=== PATIENT | male | born 1980 | race Caucasian/White ===

== ENCOUNTER 2024-08-27 09:16 | Emergency (ER) | payer OTHER ==
[~2024-08-27] VITALS: Ht 175.3 cm; Wt 102.1 kg
[2024-08-27] MEDS ORDERED: Acetaminophen 500 MG Tab PO ONE (10:25)
[2024-08-27] MEDS ORDERED: Ibuprofen 600 MG Tab PO ONE (10:25)
[2024-08-27] MEDS ORDERED: OxyCODONE HCL 5 MG TAB PO ONE (10:25)
[2024-08-27 10:51] LABS: BASOPHILS ABSOLUTE AUTO 0.04 K/mm3 (0.00-0.23); BASOPHILS PERCENT AUTO 1 % (0-2); EOSINOPHILS ABSOLUTE AUTO 0.16 K/mm3 (0.00-0.68); EOSINOPHILS PERCENT AUTO 2 % (0-6); Hematocrit 43.5 % (37.0-53.0); Hemoglobin 15.7 g/dL (13.5-17.5); IMMATURE GRAN ABSOLUTE AUTO 0.03 K/mm3 (0.00-0.10); IMMATURE GRAN PERCENT AUTO 0 % (0-1); LYMPHOCYTES ABSOLUTE AUTO 1.58 K/mm3 (0.84-5.20); LYMPHOCYTES PERCENT AUTO 18 % (21-46); MONOCYTES ABSOLUTE AUTO 0.68 K/mm3 (0.16-1.47); MONOCYTES PERCENT AUTO 8 % (4-13); Mean Corpuscular HGB 31.8 pg (26.0-34.0); Mean Corpuscular HGB Conc 36.1 g/dL (31.5-36.5); Mean Corpuscular Volume 88 fL (80-100); Mean Platelet Volume 11.6 fL (9.1-12.4); NEUTROPHILS ABSOLUTE AUTO 6.08 K/mm3 (1.96-9.15); NEUTROPHILS PERCENT AUTO 71 % (41-73); Platelet Count 127 K/mm3 (150-400); RDW Coefficient Variation 12.3 % (11.7-14.2); RDW Standard Deviation 39.9 fL (35.1-46.3); Red Blood Cell Count 4.93 M/mm3 (4.30-5.90); White Blood Cell Count 8.57 K/mm3 (4.00-11.30)
[2024-08-27 11:36] LABS: Albumin/Globulin Ratio 1.1 (0.8-1.8); Bilirubin, Total 0.8 mg/dL (0.1-1.0); Bun/Creatinine Ratio 11.2 (12.0-20.0); C-REACTIVE PROTEIN, EXT RANGE 1.17 mg/dL (0.000-0.300); Creatinine, Blood 0.54 mg/dL (0.60-1.20); Globulin, Blood 3.7 g/dL (2.2-4.0); Potassium, Blood 3.5 mmol/L (3.5-5.5); Total Protein, Blood 7.7 g/dL (6.4-8.2)
[2024-08-27] MEDS ORDERED: Cephalexin Monohydrate 500 MG Cap PO ONE (12:35)
[2024-08-27] MEDS ORDERED: Trimethoprim/Sulfamethoxazole DS Tab PO ONE (12:35)
[2024-08-27] MEDS ORDERED: CEPH500 PO (14:11)
[2024-08-27] MEDS ORDERED: SULTRIDS PO (14:11)
== END 2024-08-27 14:00 | disposition home or self-care (01) ==
LOC: ER 09:16
PROVIDERS: Student in an Organized Health Care Education/Training Program
DX: L03.211 Cellulitis of face (principal); M25.512 Pain in left shoulder; G89.29 Other chronic pain; Z88.0 Allergy status to penicillin
CPT/HCPCS: 36415; 70490; 73030; 80053; 85025; 85651; 86140; 99284-25; A9270

== ENCOUNTER 2025-03-29 08:24 | Emergency (ER) | payer OTHER ==
[~2025-03-29] VITALS: Ht 175.3 cm; Wt 102.1 kg
[~2025-03-29 08:24] MED LIST: CEPH500 PO; SULTRIDS PO
[2025-03-29] MEDS ORDERED: Morphine Sulfate 4 MG/1 ML Injection IV ONE (09:05)
[2025-03-29 09:55] LABS: BASOPHILS ABSOLUTE AUTO 0.07 K/mm3 (0.00-0.23); BASOPHILS PERCENT AUTO 1 % (0-2); EOSINOPHILS ABSOLUTE AUTO 0.16 K/mm3 (0.00-0.68); EOSINOPHILS PERCENT AUTO 2 % (0-6); Hematocrit 42.7 % (37.0-53.0); Hemoglobin 15.3 g/dL (13.5-17.5); IMMATURE GRAN ABSOLUTE AUTO 0.03 K/mm3 (0.00-0.10); IMMATURE GRAN PERCENT AUTO 0 % (0-1); LYMPHOCYTES ABSOLUTE AUTO 1.38 K/mm3 (0.84-5.20); LYMPHOCYTES PERCENT AUTO 15 % (21-46); MONOCYTES ABSOLUTE AUTO 0.77 K/mm3 (0.16-1.47); MONOCYTES PERCENT AUTO 8 % (4-13); Mean Corpuscular HGB Conc 35.8 g/dL (31.5-36.5); Mean Corpuscular Volume 88 fL (80-100); NEUTROPHILS ABSOLUTE AUTO 7.12 K/mm3 (1.96-9.15); NEUTROPHILS PERCENT AUTO 75 % (41-73); NRBC ABSOLUTE 0.00 K/mm3 (0.00-0.02); NRBC Auto 0.0 /100 WBC (0.0-0.2); Platelet Count 129 K/mm3 (150-400); RDW Coefficient Variation 12.2 % (11.7-14.2); RDW Standard Deviation 39.3 fL (35.1-46.3)
[2025-03-29 10:18] LABS: Alanine Aminotransfer (ALT/SGP 16.0 U/L (12-78); Albumin, Blood 3.9 g/dL (3.4-5.0); Albumin/Globulin Ratio 1.0 (0.8-1.8); Anion Gap 8.0 mmol/L (3-11); Aspartate Aminotrans (AST/SGOT 7.0 U/L (12-37); Bilirubin, Total 0.8 mg/dL (0.1-1.0); Blood Urea Nitrogen 9.0 mg/dL (8-24); CO2, Blood 27.0 mmol/L (21-32); Calcium, Blood 9.2 mg/dL (8.5-10.1); Chloride, Blood 98.0 mmol/L (98-108); Creatinine, Blood 0.52 mg/dL (0.60-1.20); Globulin, Blood 3.8 g/dL (2.2-4.0); Glucose, Blood 468.0 mg/dL (70-99); Potassium, Blood 4.2 mmol/L (3.5-5.5); Sodium, Blood 129.0 mmol/L (136-145); Total Protein, Blood 7.7 g/dL (6.4-8.2)
[2025-03-29] MEDS ORDERED: CefTRIAXone Sodium 1,000 MG in NS 100 ML IV ONE (10:35)
[2025-03-29] MEDS ORDERED: HYDROmorphone HCl/Pf 1MG SYR IV ONE (10:45)
[2025-03-29] MEDS ORDERED: DOXY100 PO (11:51)
[2025-03-29] MEDS ORDERED: OXYC5 PO (11:51)
== END 2025-03-29 12:09 | disposition home or self-care (01) ==
LOC: ER 08:24
PROVIDERS: Emergency Medicine
DX: L02.215 Cutaneous abscess of perineum (principal); L03.315 Cellulitis of perineum; Z88.0 Allergy status to penicillin
CPT/HCPCS: 46050; 72193; 80053; 83605; 85025; 96365-59; 96375-59; 99283-25; A9270; J0696; J1171; J2270; Q9967

== ENCOUNTER 2025-04-18 10:05 | Emergency (ER) | payer OTHER ==
[~2025-04-18] VITALS: Ht 175.3 cm; Wt 102.1 kg
[~2025-04-18 10:05] MED LIST changes: +DOXY100 PO; +OXYC5 PO
[2025-04-18 11:05] LABS: BASOPHILS ABSOLUTE AUTO 0.07 K/mm3 (0.00-0.23); BASOPHILS PERCENT AUTO 1 % (0-2); EOSINOPHILS ABSOLUTE AUTO 0.29 K/mm3 (0.00-0.68); EOSINOPHILS PERCENT AUTO 3 % (0-6); Hematocrit 44.1 % (37.0-53.0); Hemoglobin 15.1 g/dL (13.5-17.5); IMMATURE GRAN ABSOLUTE AUTO 0.03 K/mm3 (0.00-0.10); IMMATURE GRAN PERCENT AUTO 0 % (0-1); LYMPHOCYTES ABSOLUTE AUTO 2.68 K/mm3 (0.84-5.20); LYMPHOCYTES PERCENT AUTO 29 % (21-46); MONOCYTES ABSOLUTE AUTO 0.84 K/mm3 (0.16-1.47); MONOCYTES PERCENT AUTO 9 % (4-13); Mean Corpuscular HGB Conc 34.2 g/dL (31.5-36.5); Mean Corpuscular Volume 88 fL (80-100); NEUTROPHILS ABSOLUTE AUTO 5.44 K/mm3 (1.96-9.15); NEUTROPHILS PERCENT AUTO 58 % (41-73); NRBC ABSOLUTE 0.00 K/mm3 (0.00-0.02); NRBC Auto 0.0 /100 WBC (0.0-0.2); Platelet Count 165 K/mm3 (150-400); RDW Coefficient Variation 12.1 % (11.7-14.2); RDW Standard Deviation 39.0 fL (35.1-46.3)
[2025-04-18 11:28] LABS: Alanine Aminotransfer (ALT/SGP 18.0 U/L (12-78); Albumin, Blood 3.9 g/dL (3.4-5.0); Albumin/Globulin Ratio 1.0 (0.8-1.8); Anion Gap 7.0 mmol/L (3-11); Aspartate Aminotrans (AST/SGOT 10.0 U/L (12-37); Bilirubin, Total 0.7 mg/dL (0.1-1.0); Blood Urea Nitrogen 7.0 mg/dL (8-24); CO2, Blood 27.0 mmol/L (21-32); Calcium, Blood 9.1 mg/dL (8.5-10.1); Chloride, Blood 102.0 mmol/L (98-108); Creatinine, Blood 0.44 mg/dL (0.60-1.20); Globulin, Blood 4.0 g/dL (2.2-4.0); Glucose, Blood 283.0 mg/dL (70-99); Potassium, Blood 4.0 mmol/L (3.5-5.5); Sodium, Blood 132.0 mmol/L (136-145); Total Protein, Blood 7.9 g/dL (6.4-8.2)
[2025-04-18] MEDS ORDERED: HYDROCODONE-AC1 EA10 PO (12:49)
[2025-04-18] MEDS ORDERED: Flagyl500 MG PO (12:49)
[2025-04-18] MEDS ORDERED: CEPH500 PO (12:49)
== END 2025-04-18 12:53 | disposition home or self-care (01) ==
LOC: ER 10:05
PROVIDERS: Emergency Medicine
DX: L03.221 Cellulitis of neck (principal); R73.03 Prediabetes; I10 Essential (primary) hypertension; Z86.73 Personal history of transient ischemic attack (TIA), and cerebral infarction without residual deficits; Z88.0 Allergy status to penicillin
CPT/HCPCS: 70491; 80053; 85025; 99284-25; A9270; Q9967

== ENCOUNTER 2025-05-15 11:10 | Emergency (ER) | payer OTHER ==
[~2025-05-15] VITALS: Ht 172.7 cm; Wt 93.0 kg
[~2025-05-15 11:10] MED LIST changes: +Flagyl500 MG PO; +HYDROCODONE-AC1 EA10 PO; +LISI20 PO; +METF500C PO
[2025-05-15 11:56] LABS: BASOPHILS ABSOLUTE AUTO 0.08 K/mm3 (0.00-0.23); BASOPHILS PERCENT AUTO 1 % (0-2); EOSINOPHILS ABSOLUTE AUTO 0.17 K/mm3 (0.00-0.68); EOSINOPHILS PERCENT AUTO 2 % (0-6); Hematocrit 42.5 % (37.0-53.0); Hemoglobin 14.3 g/dL (13.5-17.5); IMMATURE GRAN ABSOLUTE AUTO 0.02 K/mm3 (0.00-0.10); IMMATURE GRAN PERCENT AUTO 0 % (0-1); LYMPHOCYTES ABSOLUTE AUTO 2.09 K/mm3 (0.84-5.20); LYMPHOCYTES PERCENT AUTO 28 % (21-46); MONOCYTES ABSOLUTE AUTO 0.61 K/mm3 (0.16-1.47); MONOCYTES PERCENT AUTO 8 % (4-13); Mean Corpuscular HGB Conc 33.6 g/dL (31.5-36.5); Mean Corpuscular Volume 88 fL (80-100); NEUTROPHILS ABSOLUTE AUTO 4.61 K/mm3 (1.96-9.15); NEUTROPHILS PERCENT AUTO 61 % (41-73); NRBC ABSOLUTE 0.00 K/mm3 (0.00-0.02); NRBC Auto 0.0 /100 WBC (0.0-0.2); Platelet Count 153 K/mm3 (150-400); RDW Coefficient Variation 12.0 % (11.7-14.2); RDW Standard Deviation 39.0 fL (35.1-46.3)
[2025-05-15 12:20] LABS: Alanine Aminotransfer (ALT/SGP 16.0 U/L (12-78); Albumin, Blood 3.3 g/dL (3.4-5.0); Albumin/Globulin Ratio 0.9 (0.8-1.8); Anion Gap 5.0 mmol/L (3-11); Aspartate Aminotrans (AST/SGOT 14.0 U/L (12-37); Bilirubin, Total 0.5 mg/dL (0.1-1.0); Blood Urea Nitrogen 7.0 mg/dL (8-24); CO2, Blood 29.0 mmol/L (21-32); Calcium, Blood 8.7 mg/dL (8.5-10.1); Chloride, Blood 103.0 mmol/L (98-108); Creatinine, Blood 0.45 mg/dL (0.60-1.20); Globulin, Blood 3.7 g/dL (2.2-4.0); Glucose, Blood 268.0 mg/dL (70-99); Potassium, Blood 4.2 mmol/L (3.5-5.5); Sodium, Blood 133.0 mmol/L (136-145); Total Protein, Blood 7.0 g/dL (6.4-8.2)
[2025-05-15] MEDS ORDERED: HYDROcodone 5-APAP 325 TAB PO ONE (16:30)
== END 2025-05-15 16:41 | disposition home or self-care (01) ==
LOC: ER 11:10
PROVIDERS: Emergency Medicine
DX: R22.1 Localized swelling, mass and lump, neck (principal); E11.9 Type 2 diabetes mellitus without complications; I10 Essential (primary) hypertension; Z86.73 Personal history of transient ischemic attack (TIA), and cerebral infarction without residual deficits; Z88.0 Allergy status to penicillin; Z79.84 Long term (current) use of oral hypoglycemic drugs; Z79.899 Other long term (current) drug therapy
CPT/HCPCS: 70491; 80053; 85025; 99284-25; A9270; Q9967

== ENCOUNTER 2025-05-22 13:41 | Emergency (ER) | payer OTHER ==
[~2025-05-22] VITALS: Ht 172.7 cm; Wt 93.9 kg
[2025-05-22 15:43] LABS: BASOPHILS ABSOLUTE AUTO 0.04 K/mm3 (0.00-0.23); BASOPHILS PERCENT AUTO 0 % (0-2); EOSINOPHILS ABSOLUTE AUTO 0.16 K/mm3 (0.00-0.68); EOSINOPHILS PERCENT AUTO 2 % (0-6); Hematocrit 42.2 % (37.0-53.0); Hemoglobin 14.9 g/dL (13.5-17.5); IMMATURE GRAN ABSOLUTE AUTO 0.02 K/mm3 (0.00-0.10); IMMATURE GRAN PERCENT AUTO 0 % (0-1); LYMPHOCYTES ABSOLUTE AUTO 2.10 K/mm3 (0.84-5.20); LYMPHOCYTES PERCENT AUTO 23 % (21-46); MONOCYTES ABSOLUTE AUTO 0.78 K/mm3 (0.16-1.47); MONOCYTES PERCENT AUTO 9 % (4-13); Mean Corpuscular HGB Conc 35.3 g/dL (31.5-36.5); Mean Corpuscular Volume 86 fL (80-100); NEUTROPHILS ABSOLUTE AUTO 6.03 K/mm3 (1.96-9.15); NEUTROPHILS PERCENT AUTO 66 % (41-73); NRBC ABSOLUTE 0.00 K/mm3 (0.00-0.02); NRBC Auto 0.0 /100 WBC (0.0-0.2); Platelet Count 157 K/mm3 (150-400); RDW Coefficient Variation 12.3 % (11.7-14.2); RDW Standard Deviation 38.9 fL (35.1-46.3)
[2025-05-22 16:07] LABS: Alanine Aminotransfer (ALT/SGP 14.0 U/L (12-78); Albumin, Blood 3.6 g/dL (3.4-5.0); Albumin/Globulin Ratio 0.9 (0.8-1.8); Anion Gap 8.0 mmol/L (3-11); Aspartate Aminotrans (AST/SGOT 7.0 U/L (12-37); Bilirubin, Total 0.6 mg/dL (0.1-1.0); Blood Urea Nitrogen 7.0 mg/dL (8-24); CO2, Blood 27.0 mmol/L (21-32); Calcium, Blood 9.0 mg/dL (8.5-10.1); Chloride, Blood 100.0 mmol/L (98-108); Creatinine, Blood 0.43 mg/dL (0.60-1.20); Globulin, Blood 4.0 g/dL (2.2-4.0); Glucose, Blood 340.0 mg/dL (70-99); Potassium, Blood 4.0 mmol/L (3.5-5.5); Sodium, Blood 131.0 mmol/L (136-145); Total Protein, Blood 7.6 g/dL (6.4-8.2)
== END 2025-05-22 18:54 | disposition left against medical advice (07) ==
LOC: ER 13:41
PROVIDERS: Emergency Medicine
DX: R22.1 Localized swelling, mass and lump, neck (principal); F17.200 Nicotine dependence, unspecified, uncomplicated; Z53.21 Procedure and treatment not carried out due to patient leaving prior to being seen by health care provider; Z88.0 Allergy status to penicillin
CPT/HCPCS: 80053; 85025

== ENCOUNTER → 2025-05-24 | Outpatient (CLI) | payer OTHER | LOC: LAB SHORT 14:40 → LAB 14:40 | DX: R59.0 Localized enlarged lymph nodes (principal); D49.0 Neoplasm of unspecified behavior of digestive system | CPT/HCPCS: 88173 ==

== ENCOUNTER 2025-06-09 23:56 | Inpatient (IN) | payer OTHER ==
[~2025-06-09] VITALS: Ht 175.3 cm; Wt 88.1 kg
[2025-06-10 00:34] LABS: BASOPHILS ABSOLUTE AUTO 0.06 K/mm3 (0.00-0.23); BASOPHILS PERCENT AUTO 1 % (0-2); EOSINOPHILS ABSOLUTE AUTO 0.21 K/mm3 (0.00-0.68); EOSINOPHILS PERCENT AUTO 3 % (0-6); Hematocrit 39.8 % (37.0-53.0); Hemoglobin 13.7 g/dL (13.5-17.5); IMMATURE GRAN ABSOLUTE AUTO 0.02 K/mm3 (0.00-0.10); IMMATURE GRAN PERCENT AUTO 0 % (0-1); LYMPHOCYTES ABSOLUTE AUTO 1.56 K/mm3 (0.84-5.20); LYMPHOCYTES PERCENT AUTO 19 % (21-46); MONOCYTES ABSOLUTE AUTO 0.74 K/mm3 (0.16-1.47); MONOCYTES PERCENT AUTO 9 % (4-13); Mean Corpuscular HGB Conc 34.4 g/dL (31.5-36.5); Mean Corpuscular Volume 85 fL (80-100); NEUTROPHILS ABSOLUTE AUTO 5.67 K/mm3 (1.96-9.15); NEUTROPHILS PERCENT AUTO 69 % (41-73); NRBC ABSOLUTE 0.00 K/mm3 (0.00-0.02); NRBC Auto 0.0 /100 WBC (0.0-0.2); Platelet Count 172 K/mm3 (150-400); RDW Coefficient Variation 12.4 % (11.7-14.2); RDW Standard Deviation 38.5 fL (35.1-46.3)
[2025-06-10 00:57] LABS: Alanine Aminotransfer (ALT/SGP 19.0 U/L (12-78); Albumin, Blood 3.6 g/dL (3.4-5.0); Albumin/Globulin Ratio 1.1 (0.8-1.8); Anion Gap 10.0 mmol/L (3-11); Aspartate Aminotrans (AST/SGOT 18.0 U/L (12-37); Bilirubin, Total 0.7 mg/dL (0.1-1.0); Blood Urea Nitrogen 8.0 mg/dL (8-24); CO2, Blood 26.0 mmol/L (21-32); Calcium, Blood 9.1 mg/dL (8.5-10.1); Chloride, Blood 101.0 mmol/L (98-108); Creatinine, Blood 0.44 mg/dL (0.60-1.20); Globulin, Blood 3.4 g/dL (2.2-4.0); Glucose, Blood 257.0 mg/dL (70-99); Potassium, Blood 3.8 mmol/L (3.5-5.5); Sodium, Blood 133.0 mmol/L (136-145); Total Protein, Blood 7.0 g/dL (6.4-8.2)
[2025-06-10] MEDS ORDERED: HYDROmorphone HCl/Pf 1MG SYR IV PRN ×2 (02:30→04:35)
[2025-06-10] MEDS ORDERED: MetroNIDAZOLE 500MG/NS 100 ml 100 ML IV ONE (02:35)
[2025-06-10] MEDS ORDERED: CefTRIAXone Sodium 2,000 MG in NS 100 ML IV ONE (02:35)
[2025-06-10 03:21] LABS: Prothrombin Time Results 11.6 Sec (9.7-11.5)
[2025-06-10] MEDS ORDERED: Naloxone HCl 0.4MG / ML 1ML Vial IV PRN (04:30)
[2025-06-10] MEDS ORDERED: Ondansetron HCl 2 MG / ML 2ML Vial IV PRN (04:30)
[2025-06-10] MEDS ORDERED: FLU VACC TS2025-26(6MOS UP)/PF 45 MCG/0.5 ML SYRINGE IM SCH (04:35)
[2025-06-10] MEDS ORDERED: Enoxaparin 40 MG/0.4 ML SYR SC SCH (09:00)
[2025-06-10] MEDS ORDERED: Lactobacil 2-S.Thermo-Bifido 1 1 Cap PO SCH (09:00)
[2025-06-10] MEDS ORDERED: MetroNIDAZOLE 500MG/NS 100 ml 100 ML IV SCH (10:00)
[2025-06-10 14:24] VITALS: BP 172/98
[2025-06-10] MEDS ORDERED: AMLO5 PO (14:37)
[2025-06-10 15:00] VITALS: BP 159/87
[2025-06-10] MEDS ORDERED: HydrALAZINE HCl 20 MG / ML 1ML Vial IV PRN (15:55)
--- NOTE | 2025-06-10 17:11 | NUR ---
PT SETTLED TO BED FROM ADMIT. B/P LOWERED WITH SETTLING AND WITH PAIN MEDS. SOMEWHAT IRRITABLE AND DEFENSIVE WITH QUESTIONS ON ADMIT. STAETS DOES NOT KNOW HOW LONG HAS BEEN DIABETIC. 5 YRS, 20 YRS. STATES DOES NOT KNOW DATES OR TIMES AT ALL. FINALLY SETTLED ON ABOUT 10 YRS. DOES NOT CHECK INSULIN. STATES LIVES [place]. DISCUSSED WITH DR SANCHES. ADMITTED TO INCREASED PAIN, MEDICATED PER EMAR. PT AWARE AND AGREES TO CALL IF PAIN INCREASING AGAIN. IVF INFUSING PER EMAR. NO OTHER NEW CONCERNS NOTED. BED IN LOW POSITION, CALL LITE IN REACH, CALLS APPROP
[2025-06-10] MEDS ORDERED: Insulin Human Lispro 100 Units/ML 3ML Syringe SC SCH (17:30)
[2025-06-10] MEDS ORDERED: NS 250 ML IV PRN (17:35)
[2025-06-10 19:36] VITALS: BP 154/91
[2025-06-10] MEDS ORDERED: Insulin Glargine-Yfgn 100 Unit/mL 3 ML SYR SC SCH (21:00)
--- NOTE | 2025-06-10 23:32 | NUR ---
LAB CALLED WITH POSITIVE BLOOD CX FOR GRAM POS COCCI WITH CLUSTERS. CALLED AND SPOKE TO DR PUGA. WILL PUT IN A PHARMACY CONSULT FOR VANCOMYCIN FOR BACTEREMIA WITH A TROPH OF 15-[address] PUGA.
[2025-06-10] MEDS ORDERED: Vancomycin (Pharmacy Consult) IV SCH (23:40)
[2025-06-11 00:22] VITALS: BP 153/95
[2025-06-11 04:04] VITALS: BP 146/97
[2025-06-11] MEDS ORDERED: CefTRIAXone Sodium 2,000 MG in NS 100 ML IV SCH (06:00)
--- NOTE | 2025-06-11 07:14 | NUR ---
[place] ADMINISTRATOR SUMMARY PT A&OX4, VSS. ABLE TO COMMUNICATE NEEDS APPROPRIATELY. PT HAS BEEN ASLEEP FOR MOST OF THE SHIFT. CHEST RISE/RESPIRATIONS NOTED. REMAINS ON TELE. ST AT 119. OXYCODONE ADMIN X 1 FOR NECK PAIN W/ GOOD EFFECT. VANCOMYCIN ORDERED FOR POSITIVE BC THIS SHIFT. SEE BREAK COLLETTE LUCAS'S NOTE FOR DETAILS. LR CONTINUES TO RUN AT 75 ML PER EMAR. BED RAILS UP X 2, BED IN LOWEST POSITION, BED WHEELS LOCKED, PERSONAL BELONGINGS AND CALL LIGHT WITHIN REACH FOR SAFETY.
[2025-06-11 07:58] VITALS: BP 136/93
[2025-06-11 11:19] VITALS: BP 154/97
[2025-06-11 12:10] LABS: Lactate Dehydrogenase (Ld),Bld 502.0 U/L (100-240); Uric Acid, Blood 2.4 mg/dL (3.5-7.2)
--- NOTE | 2025-06-11 14:54 | NUR ---
CLARIFIED c DR. 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 PT HAS ALREADY HAD A RADIOLOGY GUIDED BIOPSY, [place] WOULD LIKE A LARGER PORTION OF TISSUE FOR BIOPSY THUS GENERAL SURGERY CONSULT. RN CONTACTED ANSWERING SERVICE FOR CONSULT c DR. PUENTE ON 06/11/25 @ [id number].
[2025-06-11 15:42] VITALS: BP 134/77
--- NOTE | 2025-06-11 17:22 | NUR ---
SHIFT SUMMARY NO ACUTE CHANGES, A/Ox4, ABLE TO MAKE NEEDS KNOWN AND USES CALL SYSTEM APPROPRIATELY. TREATED FOR PAIN PER EMAR. INTAKE IMPROVING WITH SNACKS PT ENJOYS - PT EDUCATED/INFORMED RE PERSONALIZING MEALS. GENERAL SURGERY CONSULTS CALLED IN BY RN TODAY FOR PORT PLACEMENT AND BIOPSY OF MASS TO RIGHT NECK. GENERAL SURGEON NOT SEEN DURING THIS SHIFT FOR CONSULT. ORDERS FROM PROVIDER TO DRAW LABS FROM PIV. TELE AND CONTINUOUS PUOLSE OX DC'D. PT CURRENTLY RESTING IN BED WITH BED IN LOWEST POSITION AND CALL LIGHT WITHIN REACH.
--- NOTE | 2025-06-11 18:47 | NUR ---
PT SHOWERED. AFTER SHOWER LEFT AC PIV BLOWN, RIGHT AC PIV LEAKING. RN REMOVED BOTH PIV. PT REQUESTED RN WAIT TO PLACE NEW PIV - WILL REPORT TO NOC RN.
[2025-06-11 19:30] VITALS: BP 149/91
[2025-06-11] MEDS ORDERED: Lidocaine HCl 2% Jelly 120MG/6ML SYR (20MG PER ML) TOP ONE (19:35)
--- NOTE | 2025-06-12 00:11 | NUR ---
PT REFUSED IV RESTART. PT EDUCATED ON IMPORTANCE OF IV ACCESS FOR IV ABX THERAPY WELL FOR PAIN AND N/V. PT GIVEN OPTION TO HAVE POWERGLIDE PLACED TO CONTINUE IV ABX THERAPY AND TO BE ABLE TO DRAW LABS OFF IT, BUT STILL REFUSED. TRENCH DIGGING MACHINE OPERATOR ALSO SPOKE TO PT AFTER TOPICAL LIDOCAINE WAS USED TO PREP SITE, AND ULTRASOUND CONFIRMED VIABLE IV ACCES SITE, AND PT FLAT REFUSED TO HAVE IV STARTED. HOSPITALIST NOTIFIED OF PT REFUSAL WELL IV ABX MERREM AND VANCOMYCIN DUE AT 0000, 0100. VANCO TROUGH ALSO NOT DONE BECAUSE PT IS REFUSING LAB DRAWS. HOSPITALIS IS REVIEWING CHART FOR PO ABX TO COVER PT UNTIL MEDIPORT PLACED HOPEFULLY TODAY.
[2025-06-12 01:10] VITALS: BP 142/86
[2025-06-12 04:16] VITALS: BP 141/87
--- NOTE | 2025-06-12 06:24 | NUR ---
SHIFT SUMMARY NOC PT A/O X 4. ANXIOUS AND DECLINING IV RESTART, EVEN AFTER RECEIVING EDUCATION ABOUT THE RATIONALE FOR HAVING A PERIPHERAL IV OR MIDLINE PLACED FOR IV ABX THERAPY, BUT PT STILL DECLINED AFTER TOPICAL LIDOCAINE PLACED OVER SUITABLE SITE FOUND WITH ULTRASOUND. HOSPITALIST NOTIFIED AND PT PLACED ON PO CLINDAMYCIN UNTIL PT HAS MEDIPORT PLACED. VANCO TROUGH NOT DRAWN DUE TO REFUSAL TO GET LABS DRAWN FROM [facility]. PT PAIN BEING MANAGED PER EMAR PO CURRENTLY DUE TO NO IV ACCESS, AND PT GIVEN ONE TIME DOSE PO DILAUDID 2 MG. PT CURRENTLY RESTING WITH BED IN LOWEST POSITION, AND CALL LIGHT WITHIN REACH.
[2025-06-12 07:30] VITALS: BP 128/92
--- NOTE | 2025-06-12 14:42 | NUR ---
DISCHARGE NOTE PATIENT DRESSED SELF, CALLED FAMILY/FRIEND FOR A RIDE. DISCHARGE PAPER WORK WAS DISCUSSED, MEDICATIONS WERE REVIEWED AND FAXED TO PHARMACY. PATIENT DENIED QUESTIONS OR CONCERNS AT THIS TIME. UNDERSTANDS FOLLOW UP PLACE AND DOCTORS THAT NEED TO BE CONTACTED. PATIENT WALKED OUT WITH MEDICAL STAFF TO PERSONAL VEHICLE.
[2025-06-12] MEDS ORDERED: Insulin Glargine-Yfgn 100 Unit/mL 3 ML SYR SC SCH (21:00)
[2025-06-13 08:34] LABS: HBV CORE ANTIBODIES,TOTAL Negative (Negative)
[2025-06-14 18:52] LABS: ALPHA 1 GLOBULIN 0.42 g/dL (0.19-0.46); ALPHA 2 GLOBULIN 1.18 g/dL (0.48-1.05); BETA GLOBULIN 0.64 g/dL (0.48-1.10); GAMMA 0.70 g/dL (0.62-1.51); IMMUNOFIXATION REFLEX IFE Done
== END 2025-06-12 13:49 | disposition home or self-care (01) | DRG 841 ==
LOC: ER 23:56 → ERHOLD 23:57 → MEDS 06-10 14:15
PROVIDERS: Emergency Medicine; Internal Medicine Hematology & Oncology; Student in an Organized Health Care Education/Training Program; ADMIT Student in an Organized Health Care Education/Training Program
DX: C85.81 Other specified types of non-Hodgkin lymphoma, lymph nodes of head, face, and neck (principal); E87.1 Hypo-osmolality and hyponatremia; I10 Essential (primary) hypertension; E11.9 Type 2 diabetes mellitus without complications; F41.9 Anxiety disorder, unspecified; Z59.00 Homelessness unspecified; Z86.73 Personal history of transient ischemic attack (TIA), and cerebral infarction without residual deficits; Z79.891 Long term (current) use of opiate analgesic; Z79.84 Long term (current) use of oral hypoglycemic drugs; Z79.899 Other long term (current) drug therapy; Z88.0 Allergy status to penicillin
CPT/HCPCS: 70487; 71260; 74177; 80053; 82784; 82947; 83521; 83605; 83615; 84155; 84165; 84550; 85025; 85610; 86334; 86704; 86850; 86900; 86901; 87040; 87077; 87340; 93005; 93010; 93306; 96365-59; 96367; 96372-59; 96375-59; 96376-59; 99285-25; A9270; G0378; J0696; J1171; J1650; J1815; J2185; J3373; J7040; J7050; J7120; Q9967